=== PATIENT | female | born 1980 | race Two or more races ===

== ENCOUNTER → 2018-09-12 10:49 | Outpatient (CLI) | payer MEDICARE ==
[2010-08-18 05:49] VITALS: BMI 27.0
== END | disposition home or self-care (01) ==
LOC: D.MRI 10:49
PROVIDERS: ATTEND Orthopaedic Surgery
DX: M75.41 Impingement syndrome of right shoulder (principal)

== ENCOUNTER 2018-10-03 06:30 | Day surgery (SDC) | payer MEDICARE ==
[2018-09-28 08:33] LABS: HEMATOCRIT 41.6 % (36.0-48.0); HEMOGLOBIN 14.7 g/dL (12-16); MCH 31.3 pg (26.0-34.0); MCHC 35.3 g/dL (31.0-37.0); MCV 88.7 fL (80.0-100.0); MEAN PLATELET VOLUME 10.3 fL (7.4-10.4); RBC 4.69 10x6/uL (4.00-5.40)
[2018-09-28 08:56] LABS: CARBON DIOXIDE 22.1 mmol/L (21.0-32.0); CREATININE - SERUM 1.1 mg/dL (0.6-1.3); POTASSIUM - SERUM 4.1 mmol/L (3.5-5.1)
[~2018-10-03] VITALS: Ht 152.4 cm; Wt 64.4 kg
[~2018-10-03 06:30] MED LIST: BASAGLAR K100 UNIT/1 SC; BUSPIRONE HCL7.5 MG; COZAAR25 MG PO; GABAPENTIN100 MG PO; HYDROCODON-ACE1 EA10 PO; NOVOLOG100 UNIT/1 SC; PROTONIX40 MG PO; REPATHA SY140 MG/1 M SC; TOPAMAX50 MG PO; TRINTELLIX20 MG PO
[2018-10-03 07:27] VITALS: BP 122/79; Ht 152.4 cm; Wt 64.4 kg
[2018-10-03] MEDS ORDERED: HYDROCODON-ACE1 EA10 PO (10:42)
--- NOTE | 2018-10-20 11:33 | OP ---
PATIENT NAME: KAYODE RAMIREZ MEDICAL RECORD: [id number] :76 LOCATION:[facility] ADMISSION DATE: SURGEON: ERROL RESENDEZ MD DATE OF OPERATION: 10/03/2018 PREOPERATIVE DIAGNOSES: 1. Impingement syndrome of the right shoulder. 2. Severe biceps tendinitis of the right shoulder. POSTOPERATIVE DIAGNOSES: 1. Impingement syndrome of the right shoulder. 2. Severe biceps tendinitis of the right shoulder. PROCEDURES: 1. Arthroscopic biceps tenodesis of the right shoulder. 2. Arthroscopic distal clavicle excision done through separate incision - 1 cm. 3. Arthroscopic subacromial decompression, acromioplasty and bursectomy. SURGEON: Errol Resendez MD ANESTHESIA: General. INTRAOPERATIVE COMPLICATIONS: None. SUMMARY OF PATHOLOGIC FINDINGS: Consistent with the preoperative diagnosis, the patient had impingement syndrome. She had severe biceps tendinopathy as well as acromioclavicular arthritis. OPERATIVE SUMMARY IN DETAIL: After obtaining the appropriate preoperative orthopedic surgery consent as well as anesthetic consultation, evaluation and clearance the patient was brought to the operating room and placed on the operating table in supine position. After general laryngeal mask airway was administered, the patient was placed in a left lateral decubitus position. All pressure points were well padded to include down leg peroneal pad as well as axillary roll. The patient was held firmly to the operating table using vacuum pack suction system. Right upper extremity and shoulder were prepped and draped in routine sterile fashion. The arm was held in the Arthrex boom at 30 degrees of forward flexion, 30 degrees of abduction with 10 pounds of traction laterally. Arthroscopy was established in the glenohumeral joint from the posterior portal. Anterior portal was established in the anterior safe interval. Diagnostic arthroscopy showed some labral fraying as well as minor detachment. General arthroscopy was then followed by release of biceps tenotomy using the Dimmitt tissue ablation system. Attention was then turned to the subacromial space. While on subacromial space, sensory lateral portal was created through which Dimmitt tissue ablation system was utilized to denude the undersurface of the acromion of all soft tissue elements and release the coracoacromial ligament. A 5-0 barrel bur was used to perform acromioplasty at the level of acromioclavicular joint, then through a separate arthroscopic portal anteriorly. Distal clavicle was excised for 1 cm. Residual subacromial bursa was resected. Having completed this, arthroscopy portals were closed in routine interrupted fashion using 4-0 Prolene. Sterile dressings were applied. The patient was awakened, taken to recovery room in stable condition. All final needle and sponge counts were correct. TRANSINT:[id number] Voice Confirmation ID: [id number] DOCUMENT ID: [id number] OPERATIVE REPORT [id number] KAYODE RAMIREZ MD, ERROL GILMORE at 1133 CC: [id number] DICTATION DATE: 10/19/18 1739 PIPELINE GANG SUPERVISOR: 10/20/18 0446 [facility] 10/03/[address] [address]
== END 2018-10-03 12:50 | disposition home or self-care (01) ==
LOC: D.OPS 06:30 → D.PAN 08:30 → D.OPS 08:30 → D.PAN 09:45 → D.OPS 12:50
PROVIDERS: Anesthesiology; ATTEND Orthopaedic Surgery
DX: M75.41 Impingement syndrome of right shoulder (principal); M75.21 Bicipital tendinitis, right shoulder; Z01.812 Encounter for preprocedural laboratory examination

== ENCOUNTER → 2018-12-02 10:05 | Outpatient (CLI) | payer MEDICARE ==
[2018-10-03 07:27] VITALS: BMI 27.7
== END | disposition home or self-care (01) ==
LOC: D.MRI 11-29 10:30
PROVIDERS: ATTEND Clinical Nurse Specialist Family Health
DX: M54.12 Radiculopathy, cervical region (principal)

== ENCOUNTER → 2019-01-20 08:25 | Outpatient (CLI) | payer MEDICARE, MEDICAID ==
[2018-10-03 07:27] VITALS: BMI 27.7
== END | disposition home or self-care (01) ==
LOC: D.MRI 08:25
PROVIDERS: ATTEND Clinical Nurse Specialist Family Health
DX: M25.511 Pain in right shoulder (principal)

== ENCOUNTER 2019-04-17 09:09 | Day surgery (SDC) | payer MEDICARE, MEDICAID ==
[~2019-04-17] VITALS: Ht 152.4 cm; Wt 57.6 kg
[2019-04-17 09:46] LABS: HEMATOCRIT 44.6 % (36.0-48.0); HEMOGLOBIN 15.3 g/dL (12-16); MCH 32.4 pg (26.0-34.0); MCHC 34.3 g/dL (31.0-37.0); MCV 94.5 fL (80.0-100.0); MEAN PLATELET VOLUME 10.6 fL (7.4-10.4); RBC 4.72 10x6/uL (4.00-5.40); RDW 12.7 % (11.5-14.5)
[2019-04-17 10:06] LABS: ANION GAP 19.3 mmol/L (8-16); CALCIUM 9.1 mg/dL (8.5-10.1); CARBON DIOXIDE 20.3 mmol/L (21.0-32.0); CREATININE - SERUM 0.9 mg/dL (0.6-1.3); POTASSIUM - SERUM 4.6 mmol/L (3.5-5.1)
[2019-04-17 12:53] VITALS: BP 151/81; Ht 152.4 cm; Wt 57.6 kg
[2019-04-17] MEDS ORDERED: HYDROCODON-ACE1 EA10 PO (16:42)
--- NOTE | 2019-04-17 18:03 | NUR ---
1758 [facility] [place] DIET SERVED.
--- NOTE | 2019-04-21 14:29 | OP ---
PATIENT NAME: KAYODE RAMIREZ MEDICAL RECORD: [id number] :78 LOCATION:[facility] ADMISSION DATE: SURGEON: ERROL RESENDEZ MD DATE OF OPERATION: 04/17/2019 PREOPERATIVE DIAGNOSIS: Recurrent impingement with adhesive capsulitis of the right shoulder. POSTOPERATIVE DIAGNOSIS: Recurrent impingement with adhesive capsulitis of the right shoulder. PROCEDURES: 1. Right shoulder arthroscopy with repeat subacromial decompression. 2. Lysis of adhesions. 3. Manipulation under anesthesia. SURGEON: Errol Resendez MD 2ND GRADE TEACHER: Jb Garrison APN INTRAOPERATIVE COMPLICATIONS: None. SUMMARY OF PATHOLOGIC FINDINGS: At the time of arthroscopy, the patient was found to have substantial adhesions in the shoulder, many of which had been released by the manipulation; however, in the subacromial space, she had substantial amounts of recurrent bursa. The prior acromion resection was ample, but the bursa had to be removed and adhesion had to be lysed both intraarticularly as well as in the subacromial space. OPERATIVE SUMMARY IN DETAIL: After obtaining the appropriate preoperative orthopedic surgery consent as well as anesthetic consultation, evaluation, and clearance, the patient was brought to the operating room and placed on the operating table in supine position. After adequate general laryngeal mask airway was administered, the patient was placed in a left lateral decubitus position. All pressure points were well padded to include down leg peroneal pad as well as axillary roll. She was held firmly to the operating table using vacuum pack suction system. The right upper extremity was then prepped and draped in routine sterile fashion. Prior to beginning the arthroscopy, the shoulder was manipulated. Thusly, the scapula was stabilized. The shoulder was first manipulated in abduction, followed by forward flexion, followed by extension, followed by internal rotation and external rotation. Good release was felt. At this point, the arm was placed in the Arthrex traction boom at 30 degrees of forward flexion, 30 degrees of abduction, 10 pounds of traction laterally. Arthroscopy was then established in the glenohumeral joint from the posterior portal. Anterior portal was established in the anterior safe entry portal. Again, this was after substantial amounts of intraarticular hematoma was removed after the manipulation. Adhesions did remain in the inferior recess. These were gently taken down under direct arthroscopic visualization. Having completed this, attention was turned to the subacromial space. In the subacromial space, substantial amount of bursitis was encountered. Sensory lateral portal was created, through which the resector was utilized to remove all the bursa from the subacromial area and off the top of the rotator cuff. Rotator cuff was mobilized and evaluated and no tears were noted. Having completed this, arthroscopy portals were closed in routine interrupted fashion using 4-0 Prolene. Sterile dressings were applied. The patient was awakened OPERATIVE REPORT [id number] KAYODE RAMIREZ and taken to recovery room in stable condition. All final needle and sponge counts were correct. TRANSINT:[id number] Voice Confirmation ID: [id number] DOCUMENT ID: [id number] DIPTI KARIMI, ERROL GILMORE at 1429 CC: [id number] DICTATION DATE: 04/21/19 1125 GORE SEAMER: 04/21/19 1138 [facility] 04/17/19 [id number] [place] [address]
== END 2019-04-17 18:50 | disposition home or self-care (01) ==
LOC: D.OPS 09:09
PROVIDERS: Anesthesiology; ATTEND Orthopaedic Surgery
DX: M75.01 Adhesive capsulitis of right shoulder (principal); M75.41 Impingement syndrome of right shoulder